=== PATIENT | male | born 1950 | race Caucasian/White ===

== ENCOUNTER → 2020-02-13 | Outpatient (CLI) | payer MEDICARE | END | disposition home or self-care (01) | LOC: CVU 14:15 | PROVIDERS: ATTEND Internal Medicine | DX: R06.00 Dyspnea, unspecified (principal) | CPT/HCPCS: 93306 ==

== ENCOUNTER 2020-02-24 17:08 | Emergency (ER) | payer MEDICARE ==
[~2020-02-24] VITALS: Ht 185.4 cm; Wt 115.0 kg
--- NOTE | 2020-02-24 17:35 | NUR ---
MD AT BEDSIDE FOR ASSESSMENT, DISCUSSED CARDIOVERSION WITH PATIENT
[2020-02-24] MEDS ORDERED: PROPOFOL 10 MG/ML, 20ML ONE (17:53)
[2020-02-24 17:57] LABS: BASOPHILS % (AUTO) 1 % (0-1); EOSINOPHILS % (AUTO) 1 % (1-7); LYMPHOCYTES % (AUTO) 31 % (22-44); MD NO; MEAN CORPUSCULAR HEMOGLOBIN 30.9 pg (27.5-34.5); MEAN CORPUSCULAR HGB CONC 34.4 g/dL (33.2-36.2); MEAN PLATELET VOLUME 7.3 fL (7.4-10.4); MONOCYTES % (AUTO) 14 % (2-9); NEUTROPHILS % (AUTO) 53 % (42-75); PLATELET COUNT 240 x10^3/uL (130-400); RED BLOOD COUNT 5.34 x10^6/uL (4.38-5.82); RED CELL DISTRIBUTION WIDTH 14.2 % (9.4-14.8)
[2020-02-24] MEDS ORDERED: PROPOFOL 10 MG/ML, 20ML IVPush ONE (18:00)
[2020-02-24 18:06] LABS: INTERNATIONAL NORMALIZED RATIO 0.94 (0.93-1.1)
[2020-02-24 18:09] LABS: ALBUMIN 4.1 g/dL (3.4-5.0); ANION GAP 7 mmol/L (5-15); CALCIUM 10.1 mg/dL (8.5-10.1); CHLORIDE 109 mmol/L (98-107); CREATININE 0.98 mg/dL (0.7-1.3)
[2020-02-24 18:13] LABS: TROPONIN I < 0.015 ng/mL (0.000-0.045)
--- NOTE | 2020-02-24 18:14 | NUR ---
PT COMES IN C/O "MY HEART IS RACING" ABOUT 1400 TODAY. STATES HIS CHEST WAS FEELING "UNCOMFORTABLE, COLD SWEATS ON MY FOREHEAD, A LITTLE LIGHTHEADED. I JUST KNEW SOMETHING WASNT RIGHT. I COULDNT GET COMFORTABLE". EKG COMPLETE. MONITORS CONNECTED. WARM BLANKETS OFFERED.
--- NOTE | 2020-02-24 18:16 | NUR ---
ROOM SET UP FOR PROCEDURAL SEDATION ELECTROCARDIOVERSION
--- NOTE | 2020-02-24 18:54 | NUR ---
CARDIOVERSION COMPLETE. ALL SAFETY MEASURES IN PLACE. PT TOLERATED WELL. SEE PRINTOUT FOR VITALS
--- NOTE | 2020-02-24 19:02 | NUR ---
REPEAT EKG COMPLETE. PT BACK TO BASELINE FOLLOWING PROCEDURAL SEDATION. AWAITING LEFT LOWER LEG ULTRASOUND
[2020-02-24] MEDS ORDERED: RIVAROXABAN 20 MG TABLET ONE ×2 (20:11→20:18)
[2020-02-24 20:21] VITALS: BP 160/80
--- NOTE | 2020-02-24 20:22 | NUR ---
PT SITTING UP IN BED. ORDERED MEDICATIONS ADMINISTERED. NO C/O PAIN. VSS. NAD
[2020-02-24] MEDS ORDERED: RIVAROXABAN 20 MG TABLET PO ONE (20:30)
--- NOTE | 2020-02-24 20:38 | NUR ---
PT AMBULATED TO DISCHARGE WITH STEADY GAIT. PT ENCOURAGED TO FOLLOWUP DISCUSSED. PT EDUCATED TO STOP TAKING HIS DAILY ASPIRIN PER DR LOO UNTIL HE SEES HIS CARDILOGIST. PT EDUCATED TO RETURN TO THE ED WITH WORSENING SYMPTOMS.
== END 2020-02-24 20:41 | disposition home or self-care (01) ==
LOC: ED 20:00
DX: I48.91 Unspecified atrial fibrillation (principal); R55 Syncope and collapse; R60.0 Localized edema; R00.0 Tachycardia, unspecified; I10 Essential (primary) hypertension; E78.00 Pure hypercholesterolemia, unspecified
CPT/HCPCS: 36415; 71045; 80048; 82040; 83880; 84484; 85025; 85610; 92960; 93005; 93971; 99152; 99291; J2704

== ENCOUNTER 2020-06-07 15:19 | Emergency (ER) | payer MEDICARE ==
[~2020-06-07] VITALS: Ht 185.4 cm; Wt 117.0 kg
[2020-06-07] MEDS ORDERED: SODIUM CHLORIDE FLUSH 10ML SYR IVF ONE (16:00)
[2020-06-07 16:14] LABS: BASOPHILS % (AUTO) 1 % (0-1); EOSINOPHILS % (AUTO) 2 % (1-7); LYMPHOCYTES % (AUTO) 38 % (22-44); MEAN CORPUSCULAR HEMOGLOBIN 30.5 pg (27.5-34.5); MEAN PLATELET VOLUME 7.5 fL (7.4-10.4); MONOCYTES % (AUTO) 13 % (2-9); NEUTROPHILS % (AUTO) 46 % (42-75); PLATELET COUNT 226 x10^3/uL (130-400); RED BLOOD COUNT 5.12 x10^6/uL (4.38-5.82); RED CELL DISTRIBUTION WIDTH 14.3 % (9.4-14.8)
[2020-06-07 16:16] LABS: MD NO
[2020-06-07 16:27] LABS: ALBUMIN 3.5 g/dL (3.4-5.0); ANION GAP 7 mmol/L (5-15); CHLORIDE 110 mmol/L (98-107); CREATININE 1.02 mg/dL (0.7-1.3)
[2020-06-07 16:30] LABS: TROPONIN I < 0.015 ng/mL (0.000-0.045)
[2020-06-07] MEDS ORDERED: PROPOFOL 10 MG/ML, 20ML ONE (16:47)
--- NOTE | 2020-06-07 17:05 | NUR ---
PT SET UP FOR CARDIOVERSION AND CONSCIOUS SEDATION. SEE PAPER CHARTING FOR FURTHER.
[2020-06-07 18:15] VITALS: BP 125/74
--- NOTE | 2020-06-07 18:29 | NUR ---
PT REC'VD DISCHARGE INSTRUCTIONS AND EDUCATION. PT HAD NO FURTHER QUESTIONS. PT OFFERED TAXI VOUCHER HOME BUT STATED HE HAD A WAY HOME. PT AMBULATED TO ID AREA, STEADY GAIT.
== END 2020-06-07 18:37 | disposition home or self-care (01) ==
LOC: ED 17:45
DX: I48.0 Paroxysmal atrial fibrillation (principal); R55 Syncope and collapse; R42 Dizziness and giddiness; R00.2 Palpitations; R00.0 Tachycardia, unspecified; I10 Essential (primary) hypertension; E78.00 Pure hypercholesterolemia, unspecified
CPT/HCPCS: 36415; 80048; 82040; 83735; 84484; 85025; 92960; 93005; 99285